=== PATIENT | male | born 1955 | race Caucasian/White ===

== ENCOUNTER 2023-09-07 19:59 | Emergency (ER) | payer OTHER, SELFPAY ==
[2023-09-07 20:06] VITALS: BP 142/88
--- NOTE | 2023-09-07 20:27 | ED.GENMED ---
History of Present Illness
General
Chief Complaint: Insect Sting
Source: patient
Exam Limitations: none
Time Seen by Provider: 09/07/23 20:11
History of Present Illness
History of Present Illness:
This is a 67 year old male that comes in with c/o bee sting. States that around 7:30pm he was moving some pots and a ground bee stung him on the right side of the neck. states that his neck started to swell and he tongue felt tingly. States that he
was SOB. States that he does not have an EpiPen. Denies any fever, chills, chest pain, abd pain, nausea, vomiting, diarrhea, headache, dizziness, urinary burning.
Past History
Past History
ED Past Medical History: Asthma, GERD and Other (Complete heart block, eczema)
ED Past Surgical History: Cardiac (pacemaker), Orthopedic (Left leg repair) and Other (Hernia, )
Social History
Tobacco: Former smoker
Alcohol: Daily (1 scotch)
Drug: None
Personal:
Living: with family
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
Family History
Family History: Other
Review of Systems
Review of Systems
All Other Systems: ROS reviewed and negative except as documented in HPI and ROS
Constitutional: Reports no symptoms; Denies fever or chills
EENT: Reports other (tongue tingling )
Respiratory: Reports trouble breathing; Denies cough
Cardiac: Reports no symptoms; Denies chest pain
ABD/GI: Reports no symptoms; Denies abdominal pain, nausea, vomiting or diarrhea
: Reports no symptoms; Denies dysuria, frequency or urgency
Musculoskeletal: Reports no symptoms
Neurological: Reports no symptoms; Denies dizzy or headache
Psychiatric: Reports no symptoms
Phy Exam
General Physical Exam
General Presentation: no apparent distress
General age: appears stated age
General Skin: warm and dry
General Habitus: normal
General Mental: alert
General Hydration: appears well hydrated
ENT Exam
ENT Exam: TM's normal, pharynx normal, neck supple and other (Speech sounds thick and is in agreement)
Eye Exam
Eye Exam: EOMI
Cardiovascular Exam
Cardiovascular Exam: regular rate/rhythm, no edema and normal peripheral pulses
Pulmonary Exam
Pulmonary Exam: lungs clear, no respiratory distress, no rales, chest non tender, no crackles, no rhonchi, no wheezing and no cough
Gastrointestinal Exam
Gastrointestinal Exam: normal bowel sounds, non tender, soft, no organomegaly, no pulsatile mass and non distended
Musculoskeletal Exam
Musculoskeletal Exam: full ROM and no edema
Skin Exam
Skin Exam: normal color, warm/dry, no rash, no petechia and other (Slight redness noted at the right base of the neck. )
Psychiatric Exam
Psychiatric Exam: normal mood/affect
Course
Orders/Labs/Results
Orders:
Orders
09/07/23 20:19
Dexamethasone Sod Phosphate [Decadron] 20 mg IV NOW STA
Diphenhydramine [Benadryl] 25 mg IV NOW STA
Famotidine [Pepcid] 20 mg IV NOW STA
Vital Signs
Initial and Last Documented VS:
Initial Vital Signs
Temp Pulse Resp BP Pulse Ox
98.3 F 76 20 142/88 96
09/07/23 20:06 09/07/23 20:06 09/07/23 20:06 09/07/23 20:06 09/07/23 20:06
Last Documented Vital Signs
Temp Pulse Resp BP Pulse Ox
98.3 F 62 19 144/88 96
09/07/23 20:06 09/07/23 21:00 09/07/23 21:00 09/07/23 21:00 09/07/23 21:00
MDM/Problems Addressed
Differential Diagnosis Includes:
Allergic reaction to bee sting
MDM/Problems Addressed:
This is a 67 year old male that comes in with c/o bee sting. States that he was stung on the right sided of his neck and he had some tongue tingling and swelling and SOB. States that he does not have an EpiPen.
will give IV steroids, Benadryl and Pepcid. Will watch patient.
back into see patient. Patient states that he is feeling much better. Speech is clear. encouraged patient to use the Benadryl for the next 24 hours. Follow up with the family doctor. return with any concerns.
Chronic conditions affecting care:
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
Acute Exacerbation and/or Progression of Chronic Illness:
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
*Pulse Oximetry
Patient hypoxic: no
*EKG
Interpreted by ED Provider?: NA
Rate: EKG- N/A
*Wet Inspector Optical Glass Interpretation
Rate: Wet Inspector Optical Glass- N/A
*Critical Care Note
Total Time (30-74mins, 75-104mins- exclusive of procedures): Not Applicable
ED Attending Note
-
Portions of this chart may have been created with voice recognition software.� Occasional wrong word or��sound alike� substitutions may have occurred due to the inherent limitations of voice recognition software.
Discharge Plan
Departure
Patient Disposition: Home (Routine Discharge)
Date of Disposition: 09/07/23
Time of Disposition: 21:51
Patient with high blood pressure during this ER visit?: Yes
Condition: Good
Covid-19: Not Applicable
Discharge Problem:
Allergic reaction to bee sting
Instructions: Insect Bites and Stings (DC), BLOOD PRESSURE
Prescriptions:
New
epinephrine [EpiPen] 0.3 mg/0.3 mL auto-injector
0.3 mg IM ONCE PRN (Reason: Allergic reaction) Qty: 1 0RF
No Action
aspirin 81 MG tablet,delayed release (DR/EC)
81 mg PO DAILY
omeprazole magnesium [Prilosec OTC] 20 MG tablet,delayed release (DR/EC)
20 mg PO DAILY
multivitamin Tablet
1 tab PO DAILY
fluticasone propionate [Flonase] 50 mcg/actuation [place],Suspension
1 spray INTRANASAL DAILY
Referrals:
Judd Garcia MD [Family Provider] - Call in 1-3 days for appt
Activity Restrictions/Additional Instructions:
As discussed, this was an allergic reaction to the bee sting. Please use the Benadryl 50mg ever 6 hour for the next 24 hours. You have been given a steroid here and Pepcid. Follow up with the family doctor as needed. You have had a prescription for
an EpiPen sent to your Pharmacy. IF YOU HAVE ANY DIFFICULTY BREATHING, DIFFICULTY SWALLOWING OR YOU HAVE ANY OTHER CONCERNS PLEASE RETURN TO THE EMERGENCY ROOM.
Interventions
Interventions:
*Risk Screen - Suicide Last Done: 09/07/23 20:06
*General Assessment Last Done: 09/07/23 20:06
*Neglect/Abuse Screening Last Done: 09/07/23 20:06
ED- Fall Risk Assessment Last Done: 09/07/23 20:06
*ED COVID-19 Vaccine History Last Done: 09/07/23 20:06
ED-Skin Assessment Last Done: 09/07/23 21:28
ED- Pulmonary Assessment Last Done: 09/07/23 21:28
Discharge Date and Time
Print Language: GUINEAN
[2023-09-07] MEDS: PEPCID 20 MG IV (20:47)
[2023-09-07] MEDS: DECADRON 20 MG IV (20:47)
[2023-09-07] MEDS: BENADRYL 25 MG IV (20:47)
[2023-09-07 21:00] VITALS: BP 144/88
[2023-09-07 21:28] VITALS: BMI 24.5
--- NOTE | 2023-09-07 21:30 | EDRN ---
Pt was stung R lateral neck at 1930 by a bee. Pt has had allergic reactions to bee stings but never as bad as tonight. Pt was itchy, his tongue was 'hypersensitive', his breathing felt labored and he had redness/swelling on R side of his neck. Pt
currently feels much better. Pt says he got dizzy after benadryl iv was given and still has some dizziness. Tongue is feeling hypersensitive again but not as bad earlier. No rash. Pt notes his breathing is better and the redness/swelling on his
neck are gone and itching improved.
[2023-09-07 21:57] VITALS: BP 138/85
== END 2023-09-07 22:02 | disposition home or self-care (01) ==
LOC: EMR 19:59
PROVIDERS: EMERGENCY PHYSICIAN Emergency Medicine; FAMILY PHYSICIAN Internal Medicine
DX: T63.441A Toxic effect of venom of bees, accidental (unintentional), initial encounter (principal); R22.1 Localized swelling, mass and lump, neck; R42 Dizziness and giddiness; R06.02 Shortness of breath; R20.2 Paresthesia of skin; J45.909 Unspecified asthma, uncomplicated; K21.9 Gastro-esophageal reflux disease without esophagitis; I44.2 Atrioventricular block, complete; L30.9 Dermatitis, unspecified; Z95.0 Presence of cardiac pacemaker; Z87.891 Personal history of nicotine dependence; Z91.030 Bee allergy status; Z91.018 Allergy to other foods; Z79.82 Long term (current) use of aspirin
CPT/HCPCS: 99284; 96374; 96375 ×2

== ENCOUNTER → 2023-09-11 08:08 | Outpatient (REF) | payer OTHER, SELFPAY ==
[2023-09-11 09:01] LABS: % Basophils 0.8 % (0-2); % Eosinophils 4.6 % (0-6); % Immature Granulocytes 0.7 % (0-0.5); % Lymphocytes 20.7 % (20.5-51.1); % Monocytes 8.5 % (1.7-9.3); % Neutrophils 64.7 % (42.2-75.2); Absolute Basophils 0.1 10^3/uL (0-0.2); Absolute Eosinophils 0.3 10^3/uL (0-0.7); Absolute Lymphocytes 1.3 10^3/uL (1.2-3.4); Absolute Monocytes 0.5 10^3/uL (0.1-0.6); Hematocrit 42.8 % (39.0-52.0); Mean Corpuscular Hgb 32.5 pg (27.0-31.0); Mean Corpuscular Volume 92.8 fL (80.0-94.0); Mean Platelet Volume 9.1 fL (7.4-10.4); Nucleated Red Blood Cells % 0 % (-); Platelet Count 313 10^3/uL (130-400); Red Blood Cell Count 4.61 10^6/uL (4.70-6.10); Red Cell Dist. Width 12.7 % (11.5-14.5); White Blood Cell Count 6.1 10^3/uL (4.8-10.8)
[2023-09-11 09:22] LABS: Urine Albumin Negative (Neg - Trace); Urine Bilirubin Negative (Negative); Urine Character Clear (Clear); Urine Color Yellow; Urine Glucose Negative (Negative); Urine Ketone Negative (Negative); Urine Leukocyte Negative (Negative); Urine Nitrite Negative (Negative); Urine Occult Blood Negative (Negative); Urine Specific Gravity 1.025 (<1.030); Urine Urobilinogen Negative (Neg - 1+)
[2023-09-11 09:42] LABS: ALT (SGPT) 16 U/L (0-50); AST (SGOT) 21 U/L (17-59); Alkaline Phosphatase 58 U/L (38-126); Blood Urea Nitrogen 28 mg/dl (9-20); Carbon Dioxide 25 mmol/L (22-30); Chloride 106 mmol/L (98-107); Glucose 98 mg/dl (70-99); HDL Cholesterol 54 mg/dl; LDL Cholesterol, Calculated 143 mg/dl; Potassium 4.4 mmol/L (3.5-5.1); Sodium 138 mmol/L (135-145); Total Bilirubin 0.7 mg/dl (0.2-1.3); Total Cholesterol 229 mg/dl (50-199); Total Protein 6.4 g/dl (6.3-8.2); Triglyceride 161 mg/dl (10-149); Very Low Density Lipoprotein 32 mg/dl (0-30); eGFR > 60.00
[2023-09-11 10:00] LABS: Vitamin D, 25-OH*** 40.4 ng/mL (30-80)
[2023-09-11 10:14] LABS: PSA, Total - Screen 1.26 ng/ml (0.0-4.0)
== END ==
LOC: REG 08:08
PROVIDERS: ATTENDING PHYSICIAN Internal Medicine
DX: E78.00 Pure hypercholesterolemia, unspecified (principal); E55.9 Vitamin D deficiency, unspecified; N40.1 Benign prostatic hyperplasia with lower urinary tract symptoms; I45.9 Conduction disorder, unspecified; K21.9 Gastro-esophageal reflux disease without esophagitis
CPT/HCPCS: 36415; 80053; 80061; 81003; 82306; 85025; G0103

== ENCOUNTER → 2023-10-02 07:12 | Outpatient (REF) | payer OTHER, SELFPAY ==
[2023-10-02 08:53] LABS: % Eosinophils 4.8 % (0-6); % Immature Granulocytes 0.6 % (0-0.5); % Lymphocytes 15.2 % (20.5-51.1); % Neutrophils 69.4 % (42.2-75.2); Absolute Basophils 0.1 10^3/uL (0-0.2); Absolute Eosinophils 0.3 10^3/uL (0-0.7); Absolute Monocytes 0.6 10^3/uL (0.1-0.6); Absolute Neutrophils 4.4 10^3/uL (1.4-6.5); Hematocrit 41.8 % (39.0-52.0); Hemoglobin 14.9 g/dL (13.0-18.0); Mean Corp Hgb Conc. 35.6 g/dL (33.0-37.0); Mean Corpuscular Hgb 33.6 pg (27.0-31.0); Mean Corpuscular Volume 94.1 fL (80.0-94.0); Mean Platelet Volume 8.9 fL (7.4-10.4); Nucleated Red Blood Cells % 0 % (-); Platelet Count 293 10^3/uL (130-400); Red Blood Cell Count 4.44 10^6/uL (4.70-6.10); Red Cell Dist. Width 12.5 % (11.5-14.5); White Blood Cell Count 6.3 10^3/uL (4.8-10.8)
[2023-10-02 10:09] LABS: ALT (SGPT) 15 U/L (0-50); AST (SGOT) 23 U/L (17-59); Albumin 4.1 g/dl (3.5-5.0); Alkaline Phosphatase 61 U/L (38-126); Blood Urea Nitrogen 25 mg/dl (9-20); Carbon Dioxide 25 mmol/L (22-30); Chloride 105 mmol/L (98-107); Glucose 104 mg/dl (70-99); HDL Cholesterol 55 mg/dl; LDL Cholesterol, Calculated 137 mg/dl; Potassium 4.7 mmol/L (3.5-5.1); Sodium 137 mmol/L (135-145); Total Bilirubin 0.7 mg/dl (0.2-1.3); Total Cholesterol 214 mg/dl (50-199); Total Protein 6.4 g/dl (6.3-8.2); Triglyceride 114 mg/dl (10-149); Very Low Density Lipoprotein 22 mg/dl (0-30); eGFR > 60.00
[2023-10-02 10:24] LABS: Glycohemoglobin (HgbA1c) 5.3 % (4.0-5.6)
[2023-10-02 11:09] LABS: Folate 10.5 ng/ml (2.76-20); Vitamin B12 444 pg/ml (239-931)
== END ==
LOC: REG 07:12
PROVIDERS: FAMILY PHYSICIAN Internal Medicine
DX: E78.5 Hyperlipidemia, unspecified (principal); E66.3 Overweight; E53.9 Vitamin B deficiency, unspecified
CPT/HCPCS: 36415; 80053; 80061; 82607; 82746; 83036; 85025

== ENCOUNTER → 2023-10-03 11:31 | Outpatient (REF) | payer OTHER, SELFPAY | LOC: RAD 11:31 | PROVIDERS: ATTENDING PHYSICIAN Internal Medicine | DX: R05.3 Chronic cough (principal) | CPT/HCPCS: 71046 ==

== ENCOUNTER → 2024-01-02 14:30 | Outpatient (REF) | payer SELFPAY | LOC: RAD 14:30 | PROVIDERS: ATTENDING PHYSICIAN Student in an Organized Health Care Education/Training Program; FAMILY PHYSICIAN Internal Medicine | DX: E78.00 Pure hypercholesterolemia, unspecified (principal) | CPT/HCPCS: 75571 ==

== ENCOUNTER → 2024-03-25 06:56 | Outpatient (REF) | payer OTHER, SELFPAY ==
[2024-03-25 08:36] LABS: % Basophils 1.1 % (0-2); % Eosinophils 3.4 % (0-6); % Immature Granulocytes 0.2 % (0-0.5); % Lymphocytes 16.9 % (20.5-51.1); % Monocytes 8.4 % (1.7-9.3); Absolute Basophils 0.1 10^3/uL (0-0.2); Absolute Eosinophils 0.2 10^3/uL (0-0.7); Absolute Lymphocytes 0.9 10^3/uL (1.2-3.4); Absolute Monocytes 0.4 10^3/uL (0.1-0.6); Absolute Neutrophils 3.7 10^3/uL (1.4-6.5); Hematocrit 41.4 % (39.0-52.0); Hemoglobin 14.3 g/dL (13.0-18.0); Mean Corp Hgb Conc. 34.5 g/dL (33.0-37.0); Mean Corpuscular Hgb 32.5 pg (27.0-31.0); Mean Corpuscular Volume 94.1 fL (80.0-94.0); Mean Platelet Volume 8.9 fL (7.4-10.4); Nucleated Red Blood Cells % 0 % (-); Platelet Count 319 10^3/uL (130-400); Red Cell Dist. Width 12.4 % (11.5-14.5); White Blood Cell Count 5.3 10^3/uL (4.8-10.8)
[2024-03-25 09:01] LABS: ALT (SGPT) 15 U/L (0-50); AST (SGOT) 22 U/L (17-59); Albumin 4.2 g/dl (3.5-5.0); Alkaline Phosphatase 61 U/L (38-126); Blood Urea Nitrogen 23 mg/dl (9-20); Carbon Dioxide 26 mmol/L (22-30); Chloride 106 mmol/L (98-107); Glucose 88 mg/dl (70-99); HDL Cholesterol 62 mg/dl; LDL Cholesterol, Calculated 78 mg/dl; Potassium 4.5 mmol/L (3.5-5.1); Sodium 139 mmol/L (135-145); Total Bilirubin 0.6 mg/dl (0.2-1.3); Total Cholesterol 152 mg/dl (50-199); Total Protein 6.5 g/dl (6.3-8.2); Triglyceride 64 mg/dl (10-149); Very Low Density Lipoprotein 12 mg/dl (0-30); eGFR > 60.00
[2024-03-25 09:24] LABS: Vitamin D, 25-OH*** 45.2 ng/mL (30-80)
[2024-03-25 09:38] LABS: PSA, Total - Screen 1.24 ng/ml (0.0-4.0); TSH 3.55 uIU/ml (0.47-4.68)
[2024-03-25 09:42] LABS: Ferritin 96.1 ng/ml (17.9-464.0)
[2024-03-25 10:14] LABS: Folate 6.1 ng/ml (2.76-20); Vitamin B12 655 pg/ml (239-931)
[2024-03-26 23:25] LABS: % Free Testosterone 1.6 % (1.6-2.9); Free Testosterone 94 pg/mL (47-244); Sex Hormone Binding Globulin 47 nmol/L (19-76); Total Testosterone 593 ng/dL (300-720)
== END ==
LOC: REG 06:56
PROVIDERS: ATTENDING PHYSICIAN Registered Nurse; FAMILY PHYSICIAN Internal Medicine; OTHER PHYSICIAN Student in an Organized Health Care Education/Training Program
DX: E66.3 Overweight (principal)
CPT/HCPCS: 36415; 80053; 80061; 82306; 82607; 82728; 82746; 83036; 84270; 84402; 84403; 84443; 85025; G0103

== ENCOUNTER → 2024-05-15 10:09 | Outpatient (REF) | payer OTHER, SELFPAY ==
[2024-05-15 12:35] LABS: Rubella Negative
== END ==
LOC: REG 10:09
PROVIDERS: ATTENDING PHYSICIAN Registered Nurse
DX: Z23 Encounter for immunization (principal)
CPT/HCPCS: 36415; 86735; 86762; 86765

== ENCOUNTER → 2024-12-28 07:34 | Outpatient (REF) | payer OTHER, SELFPAY ==
[2024-12-28 09:25] LABS: Hematocrit 43.3 % (39.0-52.0); Hemoglobin 14.8 g/dL (13.0-18.0); Mean Corp Hgb Conc. 34.2 g/dL (33.0-37.0); Mean Corpuscular Volume 96.0 fL (80.0-94.0); Nucleated Red Blood Cells % 0 % (-); Platelet Count 299 10^3/uL (130-400); Red Cell Dist. Width 12.3 % (11.5-14.5)
[2024-12-28 10:07] LABS: ALT (SGPT) 21 U/L (0-50); AST (SGOT) 24 U/L (17-59); Albumin 4.3 g/dl (3.5-5.0); Alkaline Phosphatase 53 U/L (38-126); Blood Urea Nitrogen 18 mg/dl (9-20); Calcium 9.6 mg/dl (8.4-10.2); Carbon Dioxide 28 mmol/L (22-30); Chloride 106 mmol/L (98-107); Glucose 90 mg/dl (70-99); HDL Cholesterol 59 mg/dl; LDL Cholesterol, Calculated 77 mg/dl; Potassium 4.3 mmol/L (3.5-5.1); Sodium 140 mmol/L (135-145); Total Protein 6.5 g/dl (6.3-8.2); Very Low Density Lipoprotein 14 mg/dl (0-30); eGFR > 60.00
[2024-12-28 10:28] LABS: PSA, Total - Screen 1.18 ng/ml (0.0-4.0); TSH 3.50 uIU/ml (0.47-4.68)
== END ==
LOC: REG 07:34
PROVIDERS: ATTENDING PHYSICIAN Internal Medicine
DX: Z00.00 Encounter for general adult medical examination without abnormal findings (principal); I44.2 Atrioventricular block, complete; Z12.5 Encounter for screening for malignant neoplasm of prostate; E78.5 Hyperlipidemia, unspecified
CPT/HCPCS: 36415; 80053; 80061; 84443; 85025; G0103